=== PATIENT | female | born 1960 | race Caucasian/White ===

== ENCOUNTER 2018-02-12 14:54 | Inpatient (IN) | payer OTHER ==
[~2018-02-12] VITALS: Ht 157.5 cm; Wt 106.6 kg
[~2018-02-12 14:54] MED LIST: ASPI325 PO; ASPI81CH PO; CODACE30; CYCL10 PO; Cephalexin500 MG PO; Cleocin HCl300 MG PO; DIAZ5 PO; HYDACE10B PO; HYDACE5 PO; IBUP200; IBUP600 PO; IBUP800 PO; LISI5 PO; LOVA40; METF500C PO; METO25ER PO; Norco 5-325 Ta1 EACH PO; PENVK500 PO; POTA10T PO; PROM25 PO; RXHYDACE PO; Ultram50 MG PO
[2018-02-12 16:06] LABS: BASOPHILS ABSOLUTE AUTO 0.03 K/mm3 (0.00-0.23); BASOPHILS PERCENT AUTO 0 % (0-2); EOSINOPHILS PERCENT AUTO 0 % (0-6); Hematocrit 34.1 % (33.0-51.0); Hemoglobin 11.3 g/dL (11.5-16.0); IMMATURE GRAN ABSOLUTE AUTO 0.24 K/mm3 (0.00-0.10); IMMATURE GRAN PERCENT AUTO 1 % (0-1); LYMPHOCYTES ABSOLUTE AUTO 0.29 K/mm3 (0.84-5.20); LYMPHOCYTES PERCENT AUTO 1 % (21-46); MONOCYTES ABSOLUTE AUTO 0.51 K/mm3 (0.16-1.47); MONOCYTES PERCENT AUTO 2 % (4-13); Mean Corpuscular HGB 32.2 pg (26.0-34.0); Mean Corpuscular HGB Conc 33.1 g/dL (31.5-36.5); Mean Corpuscular Volume 97 fL (80-100); Mean Platelet Volume 9.4 fL (9.1-12.4); NEUTROPHILS ABSOLUTE AUTO 20.47 K/mm3 (1.96-9.15); NEUTROPHILS PERCENT AUTO 95 % (41-73); Platelet Count 303 K/mm3 (150-400); RDW Coefficient Variation 12.9 % (11.7-14.2); RDW Standard Deviation 46.4 fL (35.1-46.3); Red Blood Cell Count 3.51 M/mm3 (3.80-5.20); White Blood Cell Count 21.54 K/mm3 (4.00-11.30)
[2018-02-12 16:21] LABS: Alanine Aminotransfer (ALT/SGP 22 U/L (12-78); Albumin, Blood 3.2 g/dL (3.4-5.0); Albumin/Globulin Ratio 0.8 (0.8-1.8); Alk Phos 78 U/L (50-136); Anion Gap 11 mmol/L (6-16); Aspartate Aminotrans (AST/SGOT 17 U/L (12-37); Bilirubin, Total 0.6 mg/dL (0.1-1.0); Blood Urea Nitrogen 16 mg/dL (8-24); Bun/Creatinine Ratio 18.4 (12.0-20.0); CO2, Blood 24 mmol/L (21-32); Calcium, Blood 8.4 mg/dL (8.5-10.1); Chloride, Blood 104 mmol/L (98-108); Creatinine, Blood 0.87 mg/dL (0.40-1.00); Globulin, Blood 3.8 g/dL (2.2-4.0); Glomerular Filtration Rate >60 (60-); Glucose, Blood 169 mg/dL (70-99); Potassium, Blood 2.8 mmol/L (3.5-5.5); Sodium, Blood 139 mmol/L (136-145)
[2018-02-12] MEDS ORDERED: ASPI81CH PO (17:25)
[2018-02-12] MEDS ORDERED: Lovastatin20 MG PO (17:28)
[2018-02-12 17:46] LABS: Magnesium, Blood 1.5 mg/dL (1.6-2.4)
[2018-02-12] MEDS ORDERED: GUAI600T33 PO (22:23)
[2018-02-13 05:13] LABS: Hematocrit 33.1 % (33.0-51.0); Hemoglobin 10.9 g/dL (11.5-16.0); Mean Corpuscular HGB 32.7 pg (26.0-34.0); Mean Corpuscular HGB Conc 32.9 g/dL (31.5-36.5); Mean Corpuscular Volume 99 fL (80-100); Mean Platelet Volume 9.7 fL (9.1-12.4); Platelet Count 249 K/mm3 (150-400); RDW Coefficient Variation 13.2 % (11.7-14.2); RDW Standard Deviation 47.7 fL (35.1-46.3); Red Blood Cell Count 3.33 M/mm3 (3.80-5.20); White Blood Cell Count 15.02 K/mm3 (4.00-11.30)
[2018-02-13 05:39] LABS: Albumin, Blood 2.9 g/dL (3.4-5.0); Albumin/Globulin Ratio 0.7 (0.8-1.8); Bilirubin, Total 0.4 mg/dL (0.1-1.0); Calcium, Blood 8.7 mg/dL (8.5-10.1); Creatinine, Blood 1.09 mg/dL (0.40-1.00); Globulin, Blood 3.9 g/dL (2.2-4.0); Potassium, Blood 3.7 mmol/L (3.5-5.5); Total Protein, Blood 6.8 g/dL (6.4-8.2)
[2018-02-13 05:44] LABS: BAND PERCENT MAN 12 % (0-8); BASOPHILS PERCENT MAN 0 % (0-2); EOSINOPHILS PERCENT MAN 0 % (0-6); LYMPHOCYTES ABSOLUTE MAN 0.45 K/mm3 (0.84-5.20); LYMPHOCYTES PERCENT MAN 3 % (21-46); METAMYELOCYTE PERCENT MAN 2 % (0-0); MONOCYTES PERCENT MAN 2 % (4-13); NEUTROPHILS ABSOLUTE MAN 13.96 K/mm3 (1.96-9.15); SEG NEUTROPHILS PERCENT MAN 81 % (41-73); TOTAL CELLS COUNTED 100
[2018-02-14 05:17] LABS: Hematocrit 31.7 % (33.0-51.0); Hemoglobin 10.3 g/dL (11.5-16.0); Mean Corpuscular HGB 32.1 pg (26.0-34.0); Mean Corpuscular HGB Conc 32.5 g/dL (31.5-36.5); Mean Corpuscular Volume 99 fL (80-100); Mean Platelet Volume 9.7 fL (9.1-12.4); Platelet Count 201 K/mm3 (150-400); RDW Coefficient Variation 13.4 % (11.7-14.2); RDW Standard Deviation 48.5 fL (35.1-46.3); Red Blood Cell Count 3.21 M/mm3 (3.80-5.20); White Blood Cell Count 10.38 K/mm3 (4.00-11.30)
[2018-02-14 05:41] LABS: BAND PERCENT MAN 15 % (0-8); BASOPHILS PERCENT MAN 0 % (0-2); EOSINOPHILS PERCENT MAN 1 % (0-6); LYMPHOCYTES ABSOLUTE MAN 0.51 K/mm3 (0.84-5.20); LYMPHOCYTES PERCENT MAN 5 % (21-46); MONOCYTES PERCENT MAN 2 % (4-13); NEUTROPHILS ABSOLUTE MAN 9.54 K/mm3 (1.96-9.15); SEG NEUTROPHILS PERCENT MAN 77 % (41-73); TOTAL CELLS COUNTED 100
[2018-02-14 05:42] LABS: Albumin, Blood 2.5 g/dL (3.4-5.0); Albumin/Globulin Ratio 0.7 (0.8-1.8); Bilirubin, Total 0.3 mg/dL (0.1-1.0); Bun/Creatinine Ratio 24.3 (12.0-20.0); Calcium, Blood 8.5 mg/dL (8.5-10.1); Creatinine, Blood 1.15 mg/dL (0.40-1.00); Globulin, Blood 3.8 g/dL (2.2-4.0); Potassium, Blood 3.4 mmol/L (3.5-5.5); Total Protein, Blood 6.3 g/dL (6.4-8.2)
[2018-02-15 05:29] LABS: Bun/Creatinine Ratio 17.9 (12.0-20.0); Calcium, Blood 8.4 mg/dL (8.5-10.1); Creatinine, Blood 1.06 mg/dL (0.40-1.00); Potassium, Blood 3.1 mmol/L (3.5-5.5)
[2018-02-16 05:48] LABS: Anion Gap 10 mmol/L (6-16); Blood Urea Nitrogen 17 mg/dL (8-24); Bun/Creatinine Ratio 18.2 (12.0-20.0); CO2, Blood 26 mmol/L (21-32); Calcium, Blood 8.5 mg/dL (8.5-10.1); Chloride, Blood 106 mmol/L (98-108); Creatinine, Blood 0.93 mg/dL (0.40-1.00); Glomerular Filtration Rate >60 (60-); Glucose, Blood 114 mg/dL (70-99); Potassium, Blood 3.5 mmol/L (3.5-5.5); Sodium, Blood 142 mmol/L (136-145)
[2018-02-16 05:58] LABS: Percent Saturation 7.9 % (15.0-50.0)
[2018-02-17 04:16] LABS: BASOPHILS ABSOLUTE AUTO 0.05 K/mm3 (0.00-0.23); BASOPHILS PERCENT AUTO 1 % (0-2); EOSINOPHILS ABSOLUTE AUTO 0.33 K/mm3 (0.00-0.68); EOSINOPHILS PERCENT AUTO 3 % (0-6); Hematocrit 29.8 % (33.0-51.0); Hemoglobin 9.6 g/dL (11.5-16.0); IMMATURE GRAN PERCENT AUTO 5 % (0-1); LYMPHOCYTES ABSOLUTE AUTO 2.02 K/mm3 (0.84-5.20); LYMPHOCYTES PERCENT AUTO 19 % (21-46); MONOCYTES ABSOLUTE AUTO 1.12 K/mm3 (0.16-1.47); MONOCYTES PERCENT AUTO 10 % (4-13); Mean Corpuscular HGB 31.6 pg (26.0-34.0); Mean Corpuscular HGB Conc 32.2 g/dL (31.5-36.5); Mean Corpuscular Volume 98 fL (80-100); Mean Platelet Volume 9.5 fL (9.1-12.4); NEUTROPHILS PERCENT AUTO 63 % (41-73); Platelet Count 235 K/mm3 (150-400); RDW Standard Deviation 46.8 fL (35.1-46.3); Red Blood Cell Count 3.04 M/mm3 (3.80-5.20); White Blood Cell Count 10.92 K/mm3 (4.00-11.30)
[2018-02-17 04:38] LABS: Alanine Aminotransfer (ALT/SGP 15 U/L (12-78); Albumin, Blood 2.5 g/dL (3.4-5.0); Albumin/Globulin Ratio 0.6 (0.8-1.8); Alk Phos 78 U/L (50-136); Anion Gap 9 mmol/L (6-16); Aspartate Aminotrans (AST/SGOT 11 U/L (12-37); Bilirubin, Total 0.3 mg/dL (0.1-1.0); Blood Urea Nitrogen 21 mg/dL (8-24); Bun/Creatinine Ratio 20.8 (12.0-20.0); CO2, Blood 25 mmol/L (21-32); Calcium, Blood 8.2 mg/dL (8.5-10.1); Chloride, Blood 106 mmol/L (98-108); Creatinine, Blood 1.01 mg/dL (0.40-1.00); Globulin, Blood 4.1 g/dL (2.2-4.0); Glomerular Filtration Rate >60 (60-); Glucose, Blood 105 mg/dL (70-99); Potassium, Blood 3.3 mmol/L (3.5-5.5); Sodium, Blood 140 mmol/L (136-145); Total Protein, Blood 6.6 g/dL (6.4-8.2)
[2018-02-17] MEDS ORDERED: LISI20 PO (11:27)
[2018-02-17] MEDS ORDERED: METF500C PO (11:28)
[2018-02-17] MEDS ORDERED: METO25ER PO (11:28)
[2018-02-17] MEDS ORDERED: ACET325 PO (11:30)
[2018-02-17] MEDS ORDERED: FAMO20 PO (11:31)
[2018-02-17] MEDS ORDERED: Triamcinolone A15 G2 TOP (11:32)
[2018-02-17] MEDS ORDERED: Bactrim Ds Tab1 EACH PO (11:34)
[2018-02-18] MEDS ORDERED: NICO21TP TOP (08:09)
[2018-02-18] MEDS ORDERED: Norco 10-325 T1 EACH PO (08:10)
== END 2018-02-18 09:52 | disposition home or self-care (01) | DRG 603 ==
LOC: ER 14:54 → MEDS 14:55 → ENPENDDIS 02-18 08:00 → MEDS 02-18 09:52
PROVIDERS: Internal Medicine; Physician Assistant
DX: L03.115 Cellulitis of right lower limb (principal); E11.9 Type 2 diabetes mellitus without complications; I10 Essential (primary) hypertension; D64.9 Anemia, unspecified; F17.210 Nicotine dependence, cigarettes, uncomplicated; Z79.84 Long term (current) use of oral hypoglycemic drugs; E66.9 Obesity, unspecified; E78.5 Hyperlipidemia, unspecified; E87.6 Hypokalemia; G89.29 Other chronic pain
CPT/HCPCS: 36415; 80048; 80053; 80202; 82728; 82947; 83540; 83550; 83605; 83735; 85025; 85651; 87040; 87493; 93971; 96374; 96375; 99285; J0295; J0690; J1650; J1885; J2405; J3010; J3370; J7030; J7050; Q0163

== ENCOUNTER 2019-02-15 18:31 | Inpatient (IN) | payer OTHER ==
[~2019-02-15] VITALS: Ht 160 cm; Wt 118.1 kg
[~2019-02-15 18:31] MED LIST changes: +ACET325 PO; +Bactrim Ds Tab1 EACH PO; +FAMO20 PO; +GUAI600T33 PO; +LISI20 PO; +Lovastatin20 MG PO; +MONDOXYNE NL100 MG PO; +NICO21TP TOP; +Norco 10-325 T1 EACH PO; +Triamcinolone A15 G2 TOP
[2019-02-15 19:05] LABS: BASOPHILS ABSOLUTE AUTO 0.03 K/mm3 (0.00-0.23); BASOPHILS PERCENT AUTO 0 % (0-2); EOSINOPHILS ABSOLUTE AUTO 0.03 K/mm3 (0.00-0.68); EOSINOPHILS PERCENT AUTO 0 % (0-6); Hematocrit 37.4 % (33.0-51.0); Hemoglobin 12.3 g/dL (11.5-16.0); IMMATURE GRAN ABSOLUTE AUTO 0.07 K/mm3 (0.00-0.10); IMMATURE GRAN PERCENT AUTO 1 % (0-1); LYMPHOCYTES ABSOLUTE AUTO 0.35 K/mm3 (0.84-5.20); LYMPHOCYTES PERCENT AUTO 3 % (21-46); MONOCYTES ABSOLUTE AUTO 0.53 K/mm3 (0.16-1.47); MONOCYTES PERCENT AUTO 4 % (4-13); Mean Corpuscular HGB 31.6 pg (26.0-34.0); Mean Corpuscular HGB Conc 32.9 g/dL (31.5-36.5); Mean Corpuscular Volume 96 fL (80-100); Mean Platelet Volume 9.4 fL (9.1-12.4); NEUTROPHILS ABSOLUTE AUTO 12.67 K/mm3 (1.96-9.15); NEUTROPHILS PERCENT AUTO 93 % (41-73); Platelet Count 272 K/mm3 (150-400); RDW Coefficient Variation 13.5 % (11.7-14.2); RDW Standard Deviation 47.8 fL (35.1-46.3); Red Blood Cell Count 3.89 M/mm3 (3.80-5.20); White Blood Cell Count 13.68 K/mm3 (4.00-11.30)
[2019-02-15 19:28] LABS: Alanine Aminotransfer (ALT/SGP 27 U/L (12-78); Albumin, Blood 3.5 g/dL (3.4-5.0); Albumin/Globulin Ratio 0.9 (0.8-1.8); Alk Phos 124 U/L (50-136); Anion Gap 10 mmol/L (6-16); Aspartate Aminotrans (AST/SGOT 15 U/L (12-37); Bilirubin, Total 0.7 mg/dL (0.1-1.0); Blood Urea Nitrogen 20 mg/dL (8-24); CO2, Blood 21 mmol/L (21-32); Calcium, Blood 8.5 mg/dL (8.5-10.1); Chloride, Blood 107 mmol/L (98-108); Creatinine, Blood 0.87 mg/dL (0.40-1.00); Globulin, Blood 3.9 g/dL (2.2-4.0); Glomerular Filtration Rate >60 (60-); Glucose, Blood 224 mg/dL (70-99); Sodium, Blood 138 mmol/L (136-145); Total Protein, Blood 7.4 g/dL (6.4-8.2)
[2019-02-15] MEDS ORDERED: IBUP800 PO (22:57)
[2019-02-15] MEDS ORDERED: ACET500 PO (22:57)
[2019-02-15] MEDS ORDERED: GUAI600T33 PO (22:58)
--- NOTE | 2019-02-16 01:13 | NUR ---
PT VOMITTED ORAL KCL IMMEDIATELY AFTER ATTEMPTING TO SWALLOW PILLS AND THIS RN OBSERVED UNDISSOLVED PILLS IN EMESIS BAG. PT STATED SHE WASN'T NAUSEOUS BUT DRINKING MULTIPLE SIPS OF PEPSI W/PILLS MADE HER BELCH WHICH LEAD TO EMESIS IN HER OPINION. SHE WANTS TO TRY ORAL PILLS AGAIN SINCE SHE HASN'T TOLERATED KCL EVEN DILUTED IN LARGE AMTS OF NS. WILL ATTEMPT AGAIN SINCE MEDS WERE NOT RECIEVED.
--- NOTE | 2019-02-16 01:47 | NUR ---
VERIFIED ATTEMPTING TO GIVE 20MEQ PO KCL AGAIN. WILL TRY AT THIS TIME. VITAL SIGNS HAVE IMPROVED SINCE ARRIVAL TO FLOOR. WILL MONITOR CLOSELY.
--- NOTE | 2019-02-16 01:52 | NUR ---
VERIFIED ATTEMPTING TO GIVE 40MEQ PO KCL AGAIN. WILL TRY AT THIS TIME. CRITICAL LACTIC ACID ELEVATION (WAS 2.3 NOW 2.5) REVIEWED W/ AND HE DENIED NEEDING CONTINUOUS IVF AT THIS TIME. VITAL SIGNS HAVE IMPROVED SINCE ARRIVAL TO FLOOR. WILL MONITOR CLOSELY.
--- NOTE | 2019-02-16 04:43 | NUR ---
CRITICAL LACTIC ACID NOW 2.5, WAS 2.3. MADE AWARE AND PLANS TO REVIEW CHART, PLACING ORDERS INDICATED. PT WAS SWITCHED FROM IV POTASSIUM TO PO ROUTE D/T NOT TOLERATING IV INFUSION BUT NO NEW ORDERS PERTAINING TO LACTIC ACID AT THIS TIME.
--- NOTE | 2019-02-16 06:08 | NUR ---
T/F AND SUMMARY: PT T/F TO ROOM 355 AT 2235 VIA BED W/FAMILY AT BEDSIDE. CUSTOMER SUPPORT AGENT ASSISTED W/ADMISSION PAPERWORK AND PT ADMITTED SHE NEEDS ASSISTANCE W/ESTABLISHING A PCP. SHE ALSO HAS CHRONIC PAIN ISSUES AND TAKES 8 IBUPROFEN DAILY SO PAIN CLINIC CONSULTATION MAY BE RECOMMENDED, SS CX PLACED RESULT. PT IS A/OX4, CONTANKEROUS AND HAS MULTIPLE NONACUTE COMPLAINTS. SHE SEEMS TO BE NONCOMPLIANT W/DIABETES OUTPATIENT TX AND EDUCATION WAS PROVIDED. SHE ALSO DENIED TAKING HOME MEDS DESPITE HAVING PREVIOUS HX OF RX'D MEDS ON FILE. SHE IS HERE FOR RLE CELLULITIS W/PHOTOS TAKEN AND PERIMETER MARKED. LEG IS GROSSLY EDEMATOUS FROM KNEE TO ANKLE AND IS HOT, BRIGHT PINK AND PURPLE IN AREAS. SHE DENIES ANY SORES THE SOURCE OF INFECTION BUT DOES APPEAR TO HAVE SCATTERED SCABS OBSERVED. SHE COMPLAINTS OF PAIN TO RLE BUT REFUSED MORPHINE. NORCO X2 DOSES RECIEVED FOR 7/ "TOLERABLE" PAIN CONTROL. SHE HAD X1 EPISODE EMESIS THIS SHIFT AFTER ATTEMPTING TO SWALLOW ORAL POTASSIUM W/PEPSI. SHE DENIED NAUSEA BUT STATED PILLS "DIDN'T GO DOWN AND CAUSED GAG/BELCHING AND EMESIS". MD AUTHORIZED TO ORDER PO AGAIN WHICH SHE TOOK W/WATER SUCCESSFULLY. SHE DIDN'T TOLERATE PREVIOUSLY RX'D IV KCL D/T PAIN W/INFUSION. NEW IV WAS PLACED UPON PT'S REQUEST BUT PAIN WAS STILL TOO BAD SO KCL WAS SWITCHE TO 40 MEQ VIA PO ROUTE INSTEAD. SHE ALSO HAD BENEDRYL PO PRN FOR CONTROL OF RLE ITCHING. PT GOES OUTSIDE TO SMOKE AND DENIED SMOKING CESSATION TEACHING. SHE WAS ALSO INSTRUCTED TO KEEP LEG ELEVATED BUT INSISTS THAT IT FEELS BETTER WHEN SHE AMBULATES "TO GET FRESH AIR". SHE REQUESTED O2 UPON RETURN FROM SMOKING D/T C/O SOB BUT SPO2 WAS WNL. NO ACUTE CHANGES, VSS/AFEBRILE. WCTM AND REPORT TO DAY RN.
[2019-02-16 06:18] LABS: Hematocrit 33.9 % (33.0-51.0); Hemoglobin 11.1 g/dL (11.5-16.0); Mean Corpuscular HGB 31.5 pg (26.0-34.0); Mean Corpuscular HGB Conc 32.7 g/dL (31.5-36.5); Mean Corpuscular Volume 96 fL (80-100); Mean Platelet Volume 9.3 fL (9.1-12.4); Platelet Count 244 K/mm3 (150-400); RDW Coefficient Variation 13.8 % (11.7-14.2); RDW Standard Deviation 48.9 fL (35.1-46.3); Red Blood Cell Count 3.52 M/mm3 (3.80-5.20); White Blood Cell Count 16.56 K/mm3 (4.00-11.30)
[2019-02-16 06:35] LABS: BAND PERCENT MAN 32 % (0-8); BASOPHILS PERCENT MAN 0 % (0-2); EOSINOPHILS PERCENT MAN 0 % (0-6); LYMPHOCYTES ABSOLUTE MAN 0.16 K/mm3 (0.84-5.20); LYMPHOCYTES PERCENT MAN 1 % (21-46); METAMYELOCYTE ABSOLUTE MAN 0.16 K/mm3 (0.00-0.00); METAMYELOCYTE PERCENT MAN 1 % (0-0); MONOCYTES ABSOLUTE MAN 0.16 K/mm3 (0.16-1.47); MONOCYTES PERCENT MAN 1 % (4-13); MYELOCYTE ABSOLUTE MAN 0.33 K/mm3 (0.00-0.00); MYELOCYTE PERCENT MAN 2 % (0-0); NEUTROPHILS ABSOLUTE MAN 15.73 K/mm3 (1.96-9.15); SEG NEUTROPHILS PERCENT MAN 63 % (41-73); TOTAL CELLS COUNTED 100
[2019-02-16 06:38] LABS: Anion Gap 8 mmol/L (6-16); Blood Urea Nitrogen 22 mg/dL (8-24); CO2, Blood 22 mmol/L (21-32); Calcium, Blood 8.3 mg/dL (8.5-10.1); Chloride, Blood 109 mmol/L (98-108); Creatinine, Blood 0.96 mg/dL (0.40-1.00); Glomerular Filtration Rate >60 (60-); Glucose, Blood 164 mg/dL (70-99); Potassium, Blood 4.5 mmol/L (3.5-5.5); Sodium, Blood 139 mmol/L (136-145)
--- NOTE | 2019-02-16 18:25 | NUR ---
shift summary patient is noncompliant with her diet, uncomfortable and asks for her pain medications close to ever 3 hours, she currently gets 2 10/325s every 4 hours for pain. she is currently sleeping. she reports she is struggling to breathe, her saturation is fine and her breathing while talking is unlabored. she has asked for oxygen, then is unhappy when i did not offer this to her. i explained that giving her oxygen when she did not need it could be detrimental to her health due to the increase of co2 build up that happens in the system. the patient does not listen when given education and denies the need for education.
--- NOTE | 2019-02-17 04:51 | NUR ---
HOSPITALIST CALLED PT SPIKED A FEVER UP TO 103.1 CHECKED VITALS TWICE. HER BP 172/84, PULSE OF 106, RESP 22-24% CHEM BG 149, SATS 96%. BLOOD CULTURES DRAWN ON THE ARE NOT FINALIZED YET. LAST LACTIC ACID WAS ON THE AT 2.5. AFTER TWO ATTEMPTS TO HOSPITALIST GOT DR. VALLEJO. EXPLAINED SITUATION, INCLUDING CELLULITIS INCREASING UP LEG. HE ORDERED STAT LACTIC ACID AND TYLENOL Q 6 HOURS. INFORMED LAB WHO DRAW LABS IMMEDIATLY. GAVE TYLENOL SOON IT CAME IN. SHE IS VERY LETHARGIC BUT WAKES UP. WILL CONTINUE TO MONITOR.
[2019-02-17 04:52] LABS: Hematocrit 32.6 % (33.0-51.0); Hemoglobin 10.6 g/dL (11.5-16.0); Mean Corpuscular HGB 31.9 pg (26.0-34.0); Mean Corpuscular HGB Conc 32.5 g/dL (31.5-36.5); Mean Corpuscular Volume 98 fL (80-100); Mean Platelet Volume 9.5 fL (9.1-12.4); Platelet Count 224 K/mm3 (150-400); RDW Coefficient Variation 14.4 % (11.7-14.2); RDW Standard Deviation 51.7 fL (35.1-46.3); Red Blood Cell Count 3.32 M/mm3 (3.80-5.20); White Blood Cell Count 15.26 K/mm3 (4.00-11.30)
--- NOTE | 2019-02-17 06:36 | NUR ---
SHIFT SUMMARY: PT VERY TIRED NODDING OF AND ON, AOX3 WITH DAUGHTER IN ROOM IN ROOM WITH HER. SHE COMPLAINTED OF PAIN TO THE RIGHT LEG OFF AND ON AT BEGINNING OF SHIFT. GAVE HER 2 NORCO WITH HER PM MEDS. UNHOOKED HER FROM HER IV AND ALLOWED HER DAUGHTER TO TAKE HER OUTSIDE TO SMOKE, HER RIGHT LEG HAS MARKED CELLULITIS FROM THE KNEE DOWN. SHE HAS ONE OPEN BLISTER ON THE LATERAL PORTION OF HER LEG AND 1 INTAKE BLISTER WITH CLEAR FLUIDS TO THE ANTERIOR LEG, AND 1 INTAKE TO THE MEDIAL CALF ALSO CLEAR FLUID THIS. THE MEDICAL CALF GOT LARGER THROUGHOUT THE NIGHT, IT DID NOT OPEN, BUT THE REST OF HER LEG CONTINUED TO WEEK COPOUS ABOUT OF SEROUS FLUIDS. ONCE SHE GOT BACK SHE REPORTED INCREASE IN HER PAIN TO 10. ADMINISTERED 2 MG OF MORPHINE WHICH SHE SEEMED TO FINALLY GET SOME REST, SHE SLEPT UP TO AROUND 330 AM WHEN HER VITALS HAS A SIGNFICANT CHANGE, RESP WERE 22-24, BP 174/84, TEMP WAS 103.1, CHEM BG 149. CALLED DR. VALLEJO AND GOT ORDER FOR STATE LACTIC ACIT AND TYLENOL. RECHECK HER TEMP WAS 100.3. SHE BECAME TO LOOK BETTER OVERALL BUT WAS LETHARGIC WITH ABILITY TO AWAKEN BUT WILL FALL BACK TO SLEEP. LEG CONTNIUED TO WEEK AND REDNESS INCREASED TO ABOVE THE MARKED LINES. PAIN REMAINED CONTROLLED AFTER THE MORPHINE WAS GIVEN.LATER SHE DID ATTEMPT TO GET OUT OF BED AND WAS VERY UNSTEADY, AND LETHARGIC,SHE UNHOOKED HER IV WELL, SO WE PUT HER ON THE COMMODE AND FLUSHED HER IV AND PLACED NEW DRESSING AND CAP ON . CURRENTLY INFUSING WELL. NO OTHERE ISSUES TO NOTE, WILL REPORT TO DAY SHIFT.
--- NOTE | 2019-02-17 07:16 | NUR ---
patient has a vews score of 5 related to the patients temp, respiration rate, and blood pressure rise. the patient currently has a temperature and is sleeping. have called dr. angulo. I am aware that this is his first day with the patient and he does need time to look over the chart and make a decision on what to do with the patient at this time.
--- NOTE | 2019-02-17 18:05 | NUR ---
SHIFT SUMMARY PATIENT IS PLEASANT, ALERT AND ORIENTED INDEPENDENT. SPOKE WITH THE PATIENT AND ALERTED HER THAT I WOULD PREFER HER STAY IN THE ROOM FOR THE SAKE OF HER AND HER LEG SINCE IT IS WEEPING ALL OVER THE BED. NO ACUTE CONCERNS FROM THE PATIENT AT THIS TIME BESIDES HER LEG HURTING.
[2019-02-18 05:17] LABS: Hemoglobin 10.2 g/dL (11.5-16.0); Mean Corpuscular HGB 31.5 pg (26.0-34.0); Mean Corpuscular HGB Conc 31.9 g/dL (31.5-36.5); Mean Corpuscular Volume 99 fL (80-100); Mean Platelet Volume 11.5 fL (9.1-12.4); Platelet Count 215 K/mm3 (150-400); RDW Coefficient Variation 14.7 % (11.7-14.2); RDW Standard Deviation 52.8 fL (35.1-46.3); Red Blood Cell Count 3.24 M/mm3 (3.80-5.20)
[2019-02-18 05:43] LABS: BAND PERCENT MAN 27 % (0-8); BASOPHILS PERCENT MAN 0 % (0-2); EOSINOPHILS PERCENT MAN 0 % (0-6); LYMPHOCYTES ABSOLUTE MAN 0.84 K/mm3 (0.84-5.20); LYMPHOCYTES PERCENT MAN 5 % (21-46); MONOCYTES ABSOLUTE MAN 0.33 K/mm3 (0.16-1.47); MONOCYTES PERCENT MAN 2 % (4-13); NEUTROPHILS ABSOLUTE MAN 15.62 K/mm3 (1.96-9.15); SEG NEUTROPHILS PERCENT MAN 66 % (41-73); TOTAL CELLS COUNTED 100
[2019-02-18 05:45] LABS: Bun/Creatinine Ratio 27.7 (12.0-20.0); Calcium, Blood 8.5 mg/dL (8.5-10.1); Creatinine, Blood 1.01 mg/dL (0.40-1.00); Potassium, Blood 4.4 mmol/L (3.5-5.5)
--- NOTE | 2019-02-18 06:23 | NUR ---
SHIFT SUMMARY: MILTON WAS PLEASANT AND COOPERATIVE. ALERT MOST OF THE NIGHT WITH OCCATIONAL DOZING OFF. SHE HAS HAD A FAMILY FIREND WITH HER THROUGHOUT THE NIGHT AND KEPT HER IN A CHEERFUL MOOD. SHE WAS UP AND DOWN IN HER ROOM SHE IS USE TO BEING MOBILE AT HOME. HER RIGHT LEG HAS REMAINED SWOLLEN BUT LESS THEN PRIOR DAY. SHE HAS HAD WEEPING OF THE SKIN IN LARGE COPOUS AMOUNTS. THE BLISTER ON THE MEDIAL SIDE OF THE LEG HAS FINALLY POPPED LAYED SKIN DOWN OVER. SHE STILL HAS TWO MORE BLISTERS THAT ARE IN TACKED. FLUID IS SEROUS IN COLOR. PAIN HAS REMAINED ON AVERAGE 8 WITH NORCO BRINGS HER DOWN TO 4. VS HAVE REMAINED STABLE AND BLOOD SUGAR WAS GOOD, NO INSULIN WAS NEEDED. WILL REPORT TO DAY SHIFT RN.
--- NOTE | 2019-02-18 18:19 | NUR ---
SHIFT SUMMARY MEDICATED FOR PAIN IN RIGHT LEG X3 THIS SHIFT. PT'S RIGHT LEG SWOLLEN, RED, WITH BLISTERS THAT DRAIN. PT FREQUENTLY GOES OUTSIDE TO SMOKE. POWERGLIDE TO LEFT UPPER ARM PATENT AND INFUSES WITHOUT DIFFICULTY. NO ACUTE CHANGES THIS SHIFT. CALL LIGHT IN REACH. WILL CONTINUE TO MONITOR AND REPORT TO ONCOMING RN. CALL LIGHT IN REACH. WILL CONTINUE TO MONITOR AND REPORT TO ONCOMING RN.
[2019-02-18 21:27] LABS: Vancomycin, Trough 14.4 ug/mL (5.0-10.0)
--- NOTE | 2019-02-19 04:01 | NUR ---
SHIFT SUMMARY: PT IS ALERT AND ORIENTED. PT IS CALM AND COOPERATIVE WITH CARE. PT CALLS APPROPRIATELY. PT IS INDEPENDENT IN THE ROOM. FAMILY AND FRIENDS IN VISITING, ONE IN THE ROOM OVERNIGHT. PT REPORTS R. LEG PAIN, MEDICATING PER EMAR. PT OUTSIDE TO SMOKE ON SEVERAL OCCASIONS, ONCE GONE FOR NEARLY THREE HOURS, PT INSTRUCTED THAT SHE MAY NOT BE GONE FOR MORE THAN ONE HOUR OR SHE WOULD BE DISCHARGED, PT AGREED AND APOLOGIZED FOR HER EXTENDED ABSENCE. PT DENIES NAUSEA, VOMITING, AND SOB. NO ACUTE CHANGES OVERNIGHT. WILL REPORT TO DAY NURSE.
[2019-02-19 05:54] LABS: BASOPHILS ABSOLUTE AUTO 0.03 K/mm3 (0.00-0.23); BASOPHILS PERCENT AUTO 0 % (0-2); EOSINOPHILS ABSOLUTE AUTO 0.03 K/mm3 (0.00-0.68); EOSINOPHILS PERCENT AUTO 0 % (0-6); Hematocrit 31.6 % (33.0-51.0); IMMATURE GRAN ABSOLUTE AUTO 0.24 K/mm3 (0.00-0.10); IMMATURE GRAN PERCENT AUTO 2 % (0-1); LYMPHOCYTES ABSOLUTE AUTO 1.72 K/mm3 (0.84-5.20); LYMPHOCYTES PERCENT AUTO 11 % (21-46); MONOCYTES ABSOLUTE AUTO 1.46 K/mm3 (0.16-1.47); MONOCYTES PERCENT AUTO 9 % (4-13); Mean Corpuscular HGB 31.1 pg (26.0-34.0); Mean Corpuscular HGB Conc 31.6 g/dL (31.5-36.5); Mean Corpuscular Volume 98 fL (80-100); Mean Platelet Volume 9.6 fL (9.1-12.4); NEUTROPHILS ABSOLUTE AUTO 12.36 K/mm3 (1.96-9.15); NEUTROPHILS PERCENT AUTO 78 % (41-73); Platelet Count 256 K/mm3 (150-400); RDW Coefficient Variation 14.6 % (11.7-14.2); RDW Standard Deviation 53.7 fL (35.1-46.3); Red Blood Cell Count 3.22 M/mm3 (3.80-5.20); White Blood Cell Count 15.84 K/mm3 (4.00-11.30)
[2019-02-19 06:23] LABS: Anion Gap 4 mmol/L (6-16); Blood Urea Nitrogen 21 mg/dL (8-24); Bun/Creatinine Ratio 23.6 (12.0-20.0); CO2, Blood 27 mmol/L (21-32); Calcium, Blood 8.3 mg/dL (8.5-10.1); Chloride, Blood 108 mmol/L (98-108); Creatinine, Blood 0.89 mg/dL (0.40-1.00); Glomerular Filtration Rate >60 (60-); Glucose, Blood 149 mg/dL (70-99); Potassium, Blood 3.6 mmol/L (3.5-5.5); Sodium, Blood 139 mmol/L (136-145)
--- NOTE | 2019-02-19 18:58 | NUR ---
NO ACUTE CHANGES NOTED. PATIENT HAS CHRONIC PAIN IN HER RIGHT LOWER LEG DUE TO CELLULITIS. PAIN IS MANAGED WITH PRN MEDICATIONS. PATIENT GOES OUTSIDE AND STAYS OUTSIDE FOR EXTENDED PERIODS OF TIME EVEN THOUGH SHE HAS BEEN ASKED TO BE BACK WITHIN AN HOUR. NO CURRENT COMPLAINTS OF PAIN OR DISCOMFORT NOTED AT THIS TIME. WILL CONTINUE TO MONITOR FOR CHANGES.
--- NOTE | 2019-02-20 06:01 | NUR ---
SHIFT SUMMARY PT SLEPT FAIR, OFF AND ON. HAS BEEN OUTSIDE 4 TIMES DURING THE NIGHT. MEDICATED FOR PAIN X3. PT ALERT AND ORIENTED. PT HAS FRIEND STAYING WITH HER IN ROOM. RIGHT LEG BLISTERS WEEPY. NO ACUTE EVENTS NOTED DURING THE NIGHT, WILL CONTINUE TO MONITOR.
--- NOTE | 2019-02-20 08:00 | NUR ---
PT PLEASANT COOP A/O. TALKATIVE. FRIEND IN ROOM. H/R REG, NO MURMER NOTED. NO TELE. LUNGS CLEAR, RESP EASY, UNLABORED. ON R.A. BT X4 LAST BM TODAY. SOFT. VOIDS PER BATHROOM. BED IN LOW POSITION, CALL LITE IN REACH, CALLS APPROP. INDEPENDANT. WALKS OUTSIDE.
[2019-02-20 09:04] LABS: Vancomycin, Trough 17.6 ug/mL (5.0-10.0)
--- NOTE | 2019-02-20 18:16 | NUR ---
PT PLEASANT TODAY. OUT WHEN CAN BETWEEN ANTIBIOTICS. STATES SITS IN SUN. DOES NOT LIKE TO BE IN ROOM. WITH FRIEND. COMES BACK WHEN SAYS. ALWAYS ASKS BEFORE LEAVES. LEAVES PHONE # ON WALL SO WE CAN CLL IF NEED HER. LEG STILL OOZING. KEEPS WRAPPED WHEN LEAVES. BED IN LOW POSITION CALL LITE IN REACH, CALLS APPROP
--- NOTE | 2019-02-20 21:42 | NUR ---
PT WAS NOTED BY THIS NURSE AT BEGINNING OF SHIFT KEEPING RIGHT LOWER LEG IN DEPENDENT POSITION WHILE SITTING IN BEDSIDE CHAIR AND WHEELCHAIR, AND ALSO WEARING SAME CLOTHES SINCE ADMISSION TO INCLUDE LONG PANTS THAT TOUCH RIGHT CALF. THIS NURSE PROVIDED EXTRA LARGE HOSPITAL GOWN AND RECOMMENDED THAT PATIENT REMOVE ALL CLOTHES FROM HOME HARSH (WHICH SHE DID) AND WEAR HOSPITAL ATTIRE WHILE IN FACILITY. THIS NURSE ALSO RECOMMENDED THAT RLE BE ELEVATED 100% OF TIME ON 2-3 PILLOWS WHEN IN BEDSIDE CHAIR OR WHEELCHAIR WITH ACKNOWLEGEMENT NOTED. THIS NURSE SOILED RIGHT FOOT HOSPITAL SOCK THAT REVEALED DEEP CREASES IN SKIN AT ANKLE REGION WITH THIS NURSE RECOMMENDING PATIENT AVOID WEARING SOCK TO THIS FOOT. THIS NURSE ALSO RECOMMENDED PATIENT LIMIT HER TRIPS OUTSIDE TO NO MORE THAN TWO A DAY DUE CURRENT MEDICAL CONDITION WITH PATIENT IN AGREEMENT TO ALL THE ABOVE. PATIENTS LISSY TILLMAN IS SPENDING NIGHT AT BEDSIDE AND ASSISTS WITH ADLS. PATIENTS RIGHT LOWER LEG IS RED AND EXCORIATED WITH LARGE ANTERIOR NON OPENED BLISTER DRAINING CLEAR YELLOW FLUID.
[2019-02-21 06:23] LABS: Hematocrit 35.6 % (33.0-51.0); Mean Corpuscular HGB 31.3 pg (26.0-34.0); Mean Corpuscular HGB Conc 30.9 g/dL (31.5-36.5); Mean Platelet Volume 9.7 fL (9.1-12.4); Platelet Count 333 K/mm3 (150-400); RDW Coefficient Variation 14.6 % (11.7-14.2); RDW Standard Deviation 54.9 fL (35.1-46.3); Red Blood Cell Count 3.52 M/mm3 (3.80-5.20); White Blood Cell Count 12.87 K/mm3 (4.00-11.30)
[2019-02-21 06:35] LABS: Anion Gap 6 mmol/L (6-16); Blood Urea Nitrogen 19 mg/dL (8-24); Bun/Creatinine Ratio 24.7 (12.0-20.0); CO2, Blood 26 mmol/L (21-32); Calcium, Blood 8.1 mg/dL (8.5-10.1); Chloride, Blood 110 mmol/L (98-108); Creatinine, Blood 0.77 mg/dL (0.40-1.00); Glomerular Filtration Rate >60 (60-); Glucose, Blood 110 mg/dL (70-99); Potassium, Blood 3.2 mmol/L (3.5-5.5); Sodium, Blood 142 mmol/L (136-145)
[2019-02-21 06:36] LABS: Mean Corpuscular Volume 101 fL (80-100)
[2019-02-21 06:47] LABS: BAND PERCENT MAN 2 % (0-8); BASOPHILS PERCENT MAN 0 % (0-2); EOSINOPHILS ABSOLUTE MAN 0.12 K/mm3 (0.00-0.68); EOSINOPHILS PERCENT MAN 1 % (0-6); LYMPHOCYTES ABSOLUTE MAN 3.47 K/mm3 (0.84-5.20); LYMPHOCYTES PERCENT MAN 27 % (21-46); METAMYELOCYTE ABSOLUTE MAN 0.38 K/mm3 (0.00-0.00); METAMYELOCYTE PERCENT MAN 3 % (0-0); MONOCYTES ABSOLUTE MAN 0.51 K/mm3 (0.16-1.47); MONOCYTES PERCENT MAN 4 % (4-13); MYELOCYTE ABSOLUTE MAN 0.12 K/mm3 (0.00-0.00); MYELOCYTE PERCENT MAN 1 % (0-0); NEUTROPHILS ABSOLUTE MAN 8.23 K/mm3 (1.96-9.15); SEG NEUTROPHILS PERCENT MAN 62 % (41-73); TOTAL CELLS COUNTED 100
--- NOTE | 2019-02-21 07:15 | NUR ---
SHIFT SUMMARY: 59 Y/O OBESE FEMALE HAD RESTLESS SHIFT. THIS NURSE INSTRUCTED PATIENT ON NEED TO KEEP RLE ELEVATED AT ALL TIMES (PATIENT HAS NOT BEEN DOING THIS TASK). PTS LEFT LOWER LEG IS REDDENED, EXCORIATED WITH LARGE BLISTERS ON ANTERIOR/POSTERIOR ASPECT OF CALF DRAINING CLEAR YELLOW FLUID, LEFT FOOT HAS +3 PITTING EDEMA NOTED WITH NON OPENED BLISTERS AROUND ANKLE. PT C/O LEFT CALF PAIN RATED 9/10 WITH NORCO 5/325 X 2 GIVEN EVERY 4 HOURS WITH RELIEF FELT. PT IS ALERT AND ORIENTED X 4. PTS DAUGHTER PRIMO SPENT NIGHT AT SIDE AND ASSISTED WITH ALL ADLS. PTS LEFT UPPER ARM POWER GLIDE WOULD NOT DRAW BLOOD THUS LAB PERFORMED PERIPHERAL DRAW. PTS BED LOW POSITION, CALL LIGHT AT SIDE.
--- NOTE | 2019-02-21 18:03 | NUR ---
PT HAS BEEN OUT X2 SHE IS AOX4 AND COOPERATIVE OF CARE. PT HAS BEEN ELEVATING HER R LEG VERY WELL TODAY AND LIMITING HER TIME UP IN THE WHEELCHAIR. R LEG CONTINUES TO WEEP AND IS STILL HOT AND RED, BUT THE REDNESS HAS NOT GOTTEN WORSE TODAY. WILL CONTINUE TO MONITOR. PAIN TREATED PER EMAR.
[2019-02-21 20:48] LABS: Vancomycin, Trough 5.2 ug/mL (5.0-10.0)
--- NOTE | 2019-02-22 04:39 | NUR ---
SHIFT SUMMARY: 59 Y/O OB[place] FEMALE HAD RESTLESS NIGHT WITH PAIN RATED 9 TO RIGHT CALF WITH NORCO 5/325MG X 2 TABLETS GIVEN EVERY 4 HOURS WITH RELIEF FELT. PTS HAS BEEN KEEPING RLE ELEVATED ON 2-3 PILLOWS THIS SHIFT AND LIMITED EXCERSIONS OUTSIDE TO ONE TIME IN WHEELCHAIR. PTS RIGHT CALF ANTERIOR ASPECT HAS DRIED UP, DISTAL BLISTERS AT ANKLE REGION CONTINUE TO HAVE CLEAR YELLOW DRAINAGE NOTED. PT NEEDS LOTS OF REINFORCEMENT AND ENCOURAGEMENT TO KEEP LEG ELEVATED SHE TENDS TO BE NON COMPLIANT AT TIMES AND VOICED, "I'M GOING BACK TO WORK SOON AND CANT KEEP OFF MY LEG ALL THE TIME". PTS DAUGHTER PRIMO SPENT NIGHT AT SIDE AND ASSISTED WITH ADLS. PT ALERT AND ORIENTED X 4. PTS BED LOW POSITION, CALL LIGHT AT SIDE.
[2019-02-22 05:50] LABS: Hematocrit 36.4 % (33.0-51.0); Hemoglobin 11.2 g/dL (11.5-16.0); Mean Corpuscular HGB 30.4 pg (26.0-34.0); Mean Corpuscular HGB Conc 30.8 g/dL (31.5-36.5); Mean Corpuscular Volume 99 fL (80-100); Mean Platelet Volume 9.6 fL (9.1-12.4); Platelet Count 386 K/mm3 (150-400); RDW Coefficient Variation 14.4 % (11.7-14.2); RDW Standard Deviation 51.9 fL (35.1-46.3); Red Blood Cell Count 3.69 M/mm3 (3.80-5.20); White Blood Cell Count 17.47 K/mm3 (4.00-11.30)
[2019-02-22 06:14] LABS: Anion Gap 6 mmol/L (6-16); Blood Urea Nitrogen 24 mg/dL (8-24); Bun/Creatinine Ratio 31.6 (12.0-20.0); CO2, Blood 25 mmol/L (21-32); Chloride, Blood 108 mmol/L (98-108); Creatinine, Blood 0.76 mg/dL (0.40-1.00); Glomerular Filtration Rate >60 (60-); Glucose, Blood 124 mg/dL (70-99); Potassium, Blood 3.6 mmol/L (3.5-5.5); Sodium, Blood 139 mmol/L (136-145)
[2019-02-22 06:16] LABS: BAND PERCENT MAN 1 % (0-8); BASOPHILS PERCENT MAN 0 % (0-2); EOSINOPHILS ABSOLUTE MAN 0.17 K/mm3 (0.00-0.68); EOSINOPHILS PERCENT MAN 1 % (0-6); LYMPHOCYTES ABSOLUTE MAN 4.19 K/mm3 (0.84-5.20); LYMPHOCYTES PERCENT MAN 24 % (21-46); MONOCYTES ABSOLUTE MAN 0.69 K/mm3 (0.16-1.47); MONOCYTES PERCENT MAN 4 % (4-13); SEG NEUTROPHILS PERCENT MAN 70 % (41-73); TOTAL CELLS COUNTED 100
--- NOTE | 2019-02-22 14:38 | NUR ---
PT TRANSFERED TO [facility] WITH [facility] TO TRANSPORT. PT AOX4 AND COOPERAITIVE OF CARE. PT WAS ABLE TO TAKE A WHEELCHAIR. POWERGLIDE LEFT IN PLACE TO HAVE IV ANTIBOTICS ADMINISTERED AT [facility]AB [facility]. PT HAS ALL BELONGINGS AND PACKET WAS SENT WITH [facility]. REPORT CALLED OVER PRIOR TO TRANSPORT.
[2019-02-22] MEDS ORDERED: NAPR500 PO (15:07)
[2019-02-22] MEDS ORDERED: CEFAZOLIN2 GM/50 M2 IV (15:08)
[2019-02-22] MEDS ORDERED: DOXY100 PO (15:09)
[2019-02-22] MEDS ORDERED: Vsl#3 Capsule1 EACH PO (15:10)
[2019-02-22] MEDS ORDERED: Norco 10-325 T1 EACH PO (15:10)
[2019-02-22] MEDS ORDERED: LISI20 PO (15:11)
== END 2019-02-22 14:35 | DRG 872 ==
LOC: ER 18:31 → MEDS 21:15
PROVIDERS: Emergency Medicine; Internal Medicine; ADMIT Internal Medicine
DX: A41.9 Sepsis, unspecified organism (principal); L03.115 Cellulitis of right lower limb; R65.20 Severe sepsis without septic shock; E11.9 Type 2 diabetes mellitus without complications; I10 Essential (primary) hypertension; E87.6 Hypokalemia; I87.2 Venous insufficiency (chronic) (peripheral); A46 Erysipelas; F17.200 Nicotine dependence, unspecified, uncomplicated; E78.5 Hyperlipidemia, unspecified; Z79.84 Long term (current) use of oral hypoglycemic drugs; Z79.899 Other long term (current) drug therapy
CPT/HCPCS: 36415; 73701; 80048; 80053; 80202; 82947; 83036; 83605; 85025; 85027; 87040; 93971; 96365; 96366; 96375; 99284-25; A9270; C1751; J0690; J1650; J1815; J2270; J2405; J3010; J3370; J3480; J7030; J7050; J7120; J7512; Q0163; Q9967

== ENCOUNTER 2019-03-18 18:08 | Emergency (ER) | payer OTHER ==
[~2019-03-18] VITALS: Ht 160 cm; Wt 117.9 kg
[~2019-03-18 18:08] MED LIST changes: +ACET500 PO; +CEFAZOLIN2 GM/50 M2 IV; +DOXY100 PO; +NAPR500 PO; +Vsl#3 Capsule1 EACH PO
[2019-03-18 19:01] LABS: BASOPHILS ABSOLUTE AUTO 0.07 K/mm3 (0.00-0.23); BASOPHILS PERCENT AUTO 1 % (0-2); EOSINOPHILS ABSOLUTE AUTO 0.21 K/mm3 (0.00-0.68); EOSINOPHILS PERCENT AUTO 2 % (0-6); Hematocrit 35.5 % (33.0-51.0); Hemoglobin 11.5 g/dL (11.5-16.0); IMMATURE GRAN ABSOLUTE AUTO 0.06 K/mm3 (0.00-0.10); IMMATURE GRAN PERCENT AUTO 1 % (0-1); LYMPHOCYTES ABSOLUTE AUTO 1.75 K/mm3 (0.84-5.20); LYMPHOCYTES PERCENT AUTO 14 % (21-46); MONOCYTES ABSOLUTE AUTO 0.69 K/mm3 (0.16-1.47); MONOCYTES PERCENT AUTO 6 % (4-13); Mean Corpuscular HGB 31.6 pg (26.0-34.0); Mean Corpuscular HGB Conc 32.4 g/dL (31.5-36.5); Mean Corpuscular Volume 98 fL (80-100); NEUTROPHILS ABSOLUTE AUTO 9.56 K/mm3 (1.96-9.15); NEUTROPHILS PERCENT AUTO 77 % (41-73); Platelet Count 464 K/mm3 (150-400); RDW Coefficient Variation 13.6 % (11.7-14.2); Red Blood Cell Count 3.64 M/mm3 (3.80-5.20); White Blood Cell Count 12.34 K/mm3 (4.00-11.30)
[2019-03-18 19:17] LABS: International Normalized Ratio 0.95; Prothrombin Time Results 10.1 Sec (9.7-11.5)
[2019-03-18 19:19] LABS: Alanine Aminotransfer (ALT/SGP 14 U/L (12-78); Albumin, Blood 3.4 g/dL (3.4-5.0); Albumin/Globulin Ratio 0.7 (0.8-1.8); Alk Phos 112 U/L (50-136); Anion Gap 8 mmol/L (6-16); Aspartate Aminotrans (AST/SGOT 8 U/L (12-37); Bilirubin, Total 0.2 mg/dL (0.1-1.0); Blood Urea Nitrogen 12 mg/dL (8-24); Bun/Creatinine Ratio 15.2 (12.0-20.0); CO2, Blood 22 mmol/L (21-32); Calcium, Blood 8.7 mg/dL (8.5-10.1); Chloride, Blood 108 mmol/L (98-108); Creatinine, Blood 0.79 mg/dL (0.40-1.00); Globulin, Blood 4.7 g/dL (2.2-4.0); Glomerular Filtration Rate >60 (60-); Glucose, Blood 185 mg/dL (70-99); Potassium, Blood 3.3 mmol/L (3.5-5.5); Sodium, Blood 138 mmol/L (136-145); Total Protein, Blood 8.1 g/dL (6.4-8.2)
[2019-03-18] MEDS ORDERED: Doxycycline Hy100 MG PO (22:48)
[2019-03-18] MEDS ORDERED: Roxicodone5 MG PO (22:48)
== END 2019-03-18 23:20 | disposition home or self-care (01) ==
LOC: ER 18:08
PROVIDERS: Physician Assistant
DX: L03.115 Cellulitis of right lower limb (principal); G89.29 Other chronic pain; R73.9 Hyperglycemia, unspecified; I10 Essential (primary) hypertension; F17.210 Nicotine dependence, cigarettes, uncomplicated; Z79.899 Other long term (current) drug therapy
CPT/HCPCS: 36415; 80053; 83605; 85025; 85610; 85730; 87040; 93005; 93010; 96374; 99284-25; A9270; J1170

== ENCOUNTER → 2020-05-13 | Outpatient (CLI) | payer OTHER ==
[~2020-05-13] MED LIST changes: +Doxycycline Hy100 MG PO; +Roxicodone5 MG PO; +Veetids 500500 MG PO
[2020-05-13 15:55] LABS: Campylobacter Sp Not Detected (NOT DETECT)
[2020-05-13 15:56] LABS: Adenovirus F 40/41 Not Detected (NOT DETECT); Astrovirus Not Detected (NOT DETECT); Cryptosporidium Not Detected (NOT DETECT); Cyclospora Cayetanensis Not Detected (NOT DETECT); E. Coli O157 Not Detected (NOT DETECT); Entamoeba Histolytica Not Detected (NOT DETECT); Enteroaggregative E. coli-EAEC Not Detected (NOT DETECT); Enteropathogenic E. coli-EPEC Not Detected (NOT DETECT); Enterotoxigenic E. coli-ETEC Not Detected (NOT DETECT); Giardia Lamblia Not Detected (NOT DETECT); Norovirus GI/GII Not Detected (NOT DETECT); Plesiomonas Shigelloides Not Detected (NOT DETECT); Rotavirus A Not Detected (NOT DETECT); Salmonella Sp Not Detected (NOT DETECT); Sapovirus Not Detected (NOT DETECT); Shiga Toxin-prod E. coli-STEC Not Detected (NOT DETECT); Shigella/Enteroin E. coli-EIEC Not Detected (NOT DETECT); Vibrio Cholerae Not Detected (NOT DETECT); Vibrio Sp Not Detected (NOT DETECT); Yersinia Enterocolitica Not Detected (NOT DETECT)
== END | disposition home or self-care (01) ==
LOC: LAB SHORT 12:37 → LAB 12:37
PROVIDERS: Internal Medicine
DX: I10 Essential (primary) hypertension (principal); R19.7 Diarrhea, unspecified
CPT/HCPCS: 0097U

== ENCOUNTER → 2022-09-27 | Outpatient (CLI) | payer OTHER ==
[2022-09-27 19:34] LABS: BASOPHILS PERCENT AUTO 1 % (0-2); EOSINOPHILS ABSOLUTE AUTO 0.41 K/mm3 (0.00-0.68); EOSINOPHILS PERCENT AUTO 3 % (0-6); Hematocrit 35.4 % (33.0-51.0); Hemoglobin 11.4 g/dL (11.5-16.0); IMMATURE GRAN ABSOLUTE AUTO 0.03 K/mm3 (0.00-0.10); IMMATURE GRAN PERCENT AUTO 0 % (0-1); LYMPHOCYTES ABSOLUTE AUTO 4.32 K/mm3 (0.84-5.20); LYMPHOCYTES PERCENT AUTO 35 % (21-46); MONOCYTES ABSOLUTE AUTO 0.96 K/mm3 (0.16-1.47); MONOCYTES PERCENT AUTO 8 % (4-13); Mean Corpuscular HGB 32.4 pg (26.0-34.0); Mean Corpuscular HGB Conc 32.2 g/dL (31.5-36.5); Mean Corpuscular Volume 101 fL (80-100); NEUTROPHILS ABSOLUTE AUTO 6.66 K/mm3 (1.96-9.15); NEUTROPHILS PERCENT AUTO 53 % (41-73); Platelet Count 459 K/mm3 (150-400); RDW Coefficient Variation 12.8 % (11.7-14.2); RDW Standard Deviation 47.4 fL (35.1-46.3); Red Blood Cell Count 3.52 M/mm3 (3.80-5.20); White Blood Cell Count 12.48 K/mm3 (4.00-11.30)
[2022-09-27 19:46] LABS: Albumin, Blood 3.7 g/dL (3.4-5.0); Albumin/Globulin Ratio 1.1 (0.8-1.8); Bilirubin, Total 0.2 mg/dL (0.1-1.0); Bun/Creatinine Ratio 21.7 (12.0-20.0); Calcium, Blood 8.7 mg/dL (8.5-10.1); Creatinine, Blood 2.03 mg/dL (0.40-1.00); Globulin, Blood 3.5 g/dL (2.2-4.0); Potassium, Blood 4.5 mmol/L (3.5-5.5); Total Protein, Blood 7.2 g/dL (6.4-8.2)
== END | disposition home or self-care (01) ==
LOC: LAB SHORT 16:30
PROVIDERS: Family Medicine
DX: E11.9 Type 2 diabetes mellitus without complications (principal); I10 Essential (primary) hypertension; Z79.899 Other long term (current) drug therapy
CPT/HCPCS: 80053; 85025

== ENCOUNTER → 2022-11-28 | Outpatient (CLI) | payer OTHER ==
[2022-11-28 19:00] LABS: Creatinine Urine 46.4 mg/dL (27.00-270.00); Microalbumin, Urine Quant. 7.08 mg/L (0.000-20.000); Protein, Urine Quantitative 15.9 mg/dL (0.0-11.9)
== END | disposition home or self-care (01) ==
LOC: LAB SHORT 15:18
PROVIDERS: Internal Medicine Nephrology
DX: N18.2 Chronic kidney disease, stage 2 (mild) (principal); D63.1 Anemia in chronic kidney disease; D50.9 Iron deficiency anemia, unspecified; D52.8 Other folate deficiency anemias; N25.81 Secondary hyperparathyroidism of renal origin; R94.5 Abnormal results of liver function studies; R76.9 Abnormal immunological finding in serum, unspecified
CPT/HCPCS: 81050; 82043; 82570; 84156

== ENCOUNTER 2024-03-19 09:00 | Inpatient (IN) | payer OTHER ==
[~2024-03-19] VITALS: Ht 157.5 cm; Wt 108.7 kg
[2024-03-19] MEDS ORDERED: Ondansetron HCl 2 MG / ML 2ML Vial IV ONE (09:25)
[2024-03-19] MEDS ORDERED: Acetaminophen 500 MG Tab PO ONE (09:25)
[2024-03-19 10:20] LABS: BASOPHILS ABSOLUTE AUTO 0.05 K/mm3 (0.00-0.23); BASOPHILS PERCENT AUTO 0 % (0-2); Hematocrit 28.9 % (33.0-51.0); Hemoglobin 9.7 g/dL (11.5-16.0); LYMPHOCYTES ABSOLUTE AUTO 0.43 K/mm3 (0.84-5.20); LYMPHOCYTES PERCENT AUTO 2 % (21-46); MONOCYTES ABSOLUTE AUTO 0.66 K/mm3 (0.16-1.47); MONOCYTES PERCENT AUTO 3 % (4-13); Mean Corpuscular HGB 33.3 pg (26.0-34.0); Mean Corpuscular HGB Conc 33.6 g/dL (31.5-36.5); Mean Corpuscular Volume 99 fL (80-100); Mean Platelet Volume 9.4 fL (9.1-12.4); Platelet Count 278 K/mm3 (150-400); RDW Coefficient Variation 13.4 % (11.7-14.2); RDW Standard Deviation 47.9 fL (35.1-46.3); Red Blood Cell Count 2.91 M/mm3 (3.80-5.20); White Blood Cell Count 26.55 K/mm3 (4.00-11.30)
[2024-03-19 10:22] LABS: EOSINOPHILS ABSOLUTE AUTO 0.01 K/mm3 (0.00-0.68); EOSINOPHILS PERCENT AUTO 0 % (0-6); IMMATURE GRAN PERCENT AUTO 1 % (0-1); NEUTROPHILS PERCENT AUTO 95 % (41-73)
[2024-03-19 10:36] LABS: Albumin, Blood 3.1 g/dL (3.4-5.0); Albumin/Globulin Ratio 0.8 (0.8-1.8); Bilirubin, Total 0.5 mg/dL (0.1-1.0); Bun/Creatinine Ratio 16.3 (12.0-20.0); Calcium, Blood 8.6 mg/dL (8.5-10.1); Creatinine, Blood 1.23 mg/dL (0.40-1.00); Potassium, Blood 3.8 mmol/L (3.5-5.5); Total Protein, Blood 7.1 g/dL (6.4-8.2)
[2024-03-19 10:37] LABS: BAND PERCENT MAN 5 % (0-8); BASOPHILS PERCENT MAN 0 % (0-2); EOSINOPHILS PERCENT MAN 0 % (0-6); LYMPHOCYTES ABSOLUTE MAN 0.26 K/mm3 (0.84-5.20); LYMPHOCYTES PERCENT MAN 1 % (21-46); MONOCYTES ABSOLUTE MAN 1.06 K/mm3 (0.16-1.47); MONOCYTES PERCENT MAN 4 % (4-13); NEUTROPHILS ABSOLUTE MAN 25.22 K/mm3 (1.96-9.15); SEG NEUTROPHILS PERCENT MAN 90 % (41-73); TOTAL CELLS COUNTED 100
[2024-03-19] MEDS ORDERED: NS 1,000 ML IV SCH ×3 (10:45→15:00)
[2024-03-19] MEDS ORDERED: Vancomycin HCL 2,000 MG in NS 500 ML IV ONE (12:00)
[2024-03-19] MEDS ORDERED: Acetaminophen 325 MG TABLET PO PRN (14:15)
[2024-03-19] MEDS ORDERED: ATOR40TA PO (15:37)
[2024-03-19] MEDS ORDERED: METF500 PO (15:37)
[2024-03-19] MEDS ORDERED: LISI20 PO (15:37)
[2024-03-19] MEDS ORDERED: OMEP20ER PO (15:38)
[2024-03-19] MEDS ORDERED: PRENATAL TABLE1 EAC2 PO (15:38)
[2024-03-19] MEDS ORDERED: Norco 10-325 T1 EACH PO (15:38)
[2024-03-19] MEDS ORDERED: CeFAZolin Sodium 1,000 MG in NS 50 ML IV SCH (16:00)
[2024-03-19 16:01] VITALS: BP 94/50
--- NOTE | 2024-03-19 16:31 | NUR ---
ADMIT SUMMARY: PT ADMITTED TO ROOM 334. PT ARRIVED VIA WHEELCHAIR AND WAS ABLE TO IND TX TO BED. PT IS A/O X 4, PLEASANT AND COOPERATIVE. PT REQUESTED TO GO OUTSIDE TO SMOKE. PT EDUCATED ON HOSPITAL NON-SMOKING POLICY. PT REPORTED SHE HAD CIGARETTES AND A TELETYPE TECHNICIAN. PT WAS OKAY WITH US LOCKING UP IN OUTSIDE ROOM DRAWER. PT OFFERED NICOTINE PATCH/GUM AND SHE DECLINED OFFER. PT STARTED ON IV FLUIDS AND ABX. PT ORIENTED TO ROOM AND CALL LIGHT. PT REQUESTED HER NORCO WHICH WAS NOT ON NOV. VERIFIED ALL HOME MEDICATIONS WITH PT AND CALL PLACED TO DR. BAILEY WITH REQUEST TO START PAIN MEDICATIONS AND HOME MEDICATIONS. PT GIVEN PEPSI AND ICE WATER PER HER REQUEST. EDUCATED PT ON PRESCRIBED DIET AND HOW TO ORDER FOOD. PT V/U. PHOTOS TAKEN OF CELLULITIS TO RLE. NO OTHER SKIN SORES,RASHES, WOUNDS FOUND. PT ORIENTED TO FALL PRECAUTIONS. SHE IS SBA.
[2024-03-19] MEDS ORDERED: HYDROcodone 5-APAP 325 TAB PO PRN ×4 (16:35→22:38)
--- NOTE | 2024-03-19 18:00 | NUR ---
Pt. is awake in bed and welcomes my visit. Pt. is pleasant. Facilitate a life review. Pt. displays evidence of mild frustration with her diagnosis. Listen with empathy and consider matters of sary and belief. Pt. verbalizes of her long-term commitment to [facility] in [place] ([facility]). prayed with Pt. Pt. verbalized gratitude for the spiritual care visit and welcomed this relay assembler to return.
[2024-03-19 19:27] VITALS: BP 113/97
[2024-03-19] MEDS ORDERED: Lactobacil 2-S.Thermo-Bifido 1 1 Cap PO SCH (21:00)
[2024-03-20 03:08] VITALS: BP 104/55
[2024-03-20 05:47] LABS: BASOPHILS ABSOLUTE AUTO 0.03 K/mm3 (0.00-0.23); BASOPHILS PERCENT AUTO 0 % (0-2); EOSINOPHILS ABSOLUTE AUTO 0.02 K/mm3 (0.00-0.68); EOSINOPHILS PERCENT AUTO 0 % (0-6); Hematocrit 24.6 % (33.0-51.0); Hemoglobin 7.8 g/dL (11.5-16.0); IMMATURE GRAN ABSOLUTE AUTO 0.24 K/mm3 (0.00-0.10); IMMATURE GRAN PERCENT AUTO 1 % (0-1); LYMPHOCYTES ABSOLUTE AUTO 0.83 K/mm3 (0.84-5.20); LYMPHOCYTES PERCENT AUTO 5 % (21-46); MONOCYTES ABSOLUTE AUTO 0.87 K/mm3 (0.16-1.47); MONOCYTES PERCENT AUTO 5 % (4-13); Mean Corpuscular HGB 32.8 pg (26.0-34.0); Mean Corpuscular HGB Conc 31.7 g/dL (31.5-36.5); Mean Corpuscular Volume 103 fL (80-100); Mean Platelet Volume 9.6 fL (9.1-12.4); NEUTROPHILS ABSOLUTE AUTO 15.27 K/mm3 (1.96-9.15); NEUTROPHILS PERCENT AUTO 89 % (41-73); Platelet Count 218 K/mm3 (150-400); RDW Coefficient Variation 14.2 % (11.7-14.2); RDW Standard Deviation 53.2 fL (35.1-46.3); Red Blood Cell Count 2.38 M/mm3 (3.80-5.20); White Blood Cell Count 17.26 K/mm3 (4.00-11.30)
[2024-03-20 06:08] LABS: Albumin, Blood 2.5 g/dL (3.4-5.0); Albumin/Globulin Ratio 0.8 (0.8-1.8); Bilirubin, Total 0.4 mg/dL (0.1-1.0); Bun/Creatinine Ratio 16.4 (12.0-20.0); Calcium, Blood 7.4 mg/dL (8.5-10.1); Creatinine, Blood 1.4 mg/dL (0.40-1.00); Globulin, Blood 3.2 g/dL (2.2-4.0); Potassium, Blood 3.7 mmol/L (3.5-5.5); Total Protein, Blood 5.7 g/dL (6.4-8.2)
--- NOTE | 2024-03-20 06:34 | NUR ---
SHIFT SUMMARY: A&OX4, RA ENDORSES SOB ESPECIALLY W/ EXERTION. TELEMETRY IN PLACE DENIES CP/PRESSURE. RLE CELLULITIS MARKED, HOT AND RED, L EDEMATOUS. SBA W/ CANE TO BRP. LAST BM 03/19. REGULAR DIET W/ PILLS WHOLE. R HAND PIV RUNNING NS @ 150. PT TO D/C 03/20 HERE FOR OBS. ABX - VANC & ROCEPHIN. PT RECEIVED [employer] FOR PAIN, MEDICATIO NALTERED TO REFLECT BROADCAST DIRECTOR OPERATIONS MED LIST.
[2024-03-20 07:50] VITALS: BP 82/43
[2024-03-20] MEDS ORDERED: Lactated Ringer's 1,000 ML IV SCH (08:00)
[2024-03-20] MEDS ORDERED: Atorvastatin 40 MG Tab PO SCH (09:00)
[2024-03-20] MEDS ORDERED: Enoxaparin 40 MG/0.4 ML SYR SC SCH (09:00)
[2024-03-20 09:38] VITALS: BP 102/40
[2024-03-20] MEDS ORDERED: Vancomycin HCL 1,500 MG in NS 250 ML IV SCH (12:00)
--- NOTE | 2024-03-20 12:21 | NUR ---
THIS RN TO BEDSIDE FOR MEDICATION ADMINISTRATION. PATIENT TEARFUL, CRYING THAT SOMEONE WAS GOING TO KILL HER. I ASKED WHO AND SHE STATED IT WAS SOMEONE SHE HASN'T SPOKEN TO SINCE BEFORE COMING TO THE HOSPITAL AND THEY "THREATED TO MAKE MY LIFE A LIVING HELL. THEY'RE GOING TO KILL ME, DO YOU UNDERSTAND?" SHE ALSO REITERATED THAT SHE HADN'T SPOKEN TO THE PERSON SINCE COMING INTO THE HOSPITAL, STATING THEY'D NEVER BEEN IN THE SAME ADDRESS AT THE SAME TIME AND THIS PERSON CONTINUED TO THREATEN TO MAKE HER LIFE A LIVING HELL. SHE THEN STATED SOMEONE HAD TAKEN HER SOUP AND IT TRIGGERED HER YESTERDAY AFTER SHE HAD WORKED REALLY HARD TO GET THE SOUP. CASE MANAGEMENT CAME TO THE ROOM AND PATIENT ASKED THE LEGAL INTERNSHIP TO SIT DOWN SO THE PATIENT DID NOT FEEL SO INTIMIDATED. VERY TEARFUL, STATING SHE IS PHYSICALLY EXHAUSTED AND HAVING DIFFICULTY FINDING PLACEMENT FOR HERSELF ONCE SHE LEAVES THE HOSPITAL.
[2024-03-20 13:42] LABS: Hematocrit 24.3 % (33.0-51.0); Hemoglobin 7.7 g/dL (11.5-16.0); IMMATURE RETIC FRACTION 12.9 % (2.3-16.0); RETIC HGB EQUIVALENT 32.6 pg (28.20-36.60); RETICULOCYTE ABSOLUTE 0.0559 M/mm3 (0.0200-0.1100); RETICULOCYTE COUNT PERCENT 2.4 % (0.50-2.50)
[2024-03-20] MEDS ORDERED: METF500C PO (14:12)
[2024-03-20] MEDS ORDERED: ONDA4ODT PO (14:17)
[2024-03-20 14:40] LABS: Percent Saturation 6.8 % (15.0-50.0)
[2024-03-20 14:43] VITALS: BP 89/59
--- NOTE | 2024-03-20 17:33 | NUR ---
Pt. is awake in bed and welcomes my visit. Pt. is unsettled by the lack of a clear diagnosis for her condition. Listened with empathy and a calming presence. Seek to normalize the Pt. experience. Pt. displayed evidence of understanding and agreement. Pt. spoke about how she normally only eats one meal a day at home. Prayed for Pt. Pt. requested a bible. One was delivered, and Pt. verbalized gratitude for the spiritual care visits.
[2024-03-20 19:02] VITALS: BP 104/72
--- NOTE | 2024-03-20 20:10 | NUR ---
DAY SHIFT SUMMARY: A&Ox4. PLEASANT AND COOPERATIVE WITH CARE. CALLS APPRORPIATELY AND IS ABLE TO ADVOCATE NEEDS EFFECTIVELY. LR TODAY @ 150. TOOK SHOWER. C/O PAIN; MEDICATED x2 PRN NORCO 2 TABS D/T SIGNIFICANT LEG PAIN. FAMILY IN AND OUT TODAY. SOFT BPs AND ASYMPTOMATIC. DR. POPE NOTIFIED. NO OTHER ACUTE CONCERNS TODAY. BED IN LOWEST POSITION, CALL LIGHT WITHIN REACH AND ALL NEEDS MET. REPORT TO ONCOMING RN.
[2024-03-20] MEDS ORDERED: Ondansetron 4 MG SoluTab MM PRN (21:25)
[2024-03-21] MEDS ORDERED: HYDROcodone 5-APAP 325 TAB PO PRN ×2 (00:25→10:45)
[2024-03-21] MEDS ORDERED: NS 250 ML IV ONE (01:00)
[2024-03-21 03:38] VITALS: BP 107/52
[2024-03-21 05:13] LABS: BASOPHILS ABSOLUTE AUTO 0.03 K/mm3 (0.00-0.23); BASOPHILS PERCENT AUTO 0 % (0-2); EOSINOPHILS ABSOLUTE AUTO 0.11 K/mm3 (0.00-0.68); EOSINOPHILS PERCENT AUTO 1 % (0-6); Hematocrit 24.4 % (33.0-51.0); Hemoglobin 7.8 g/dL (11.5-16.0); IMMATURE GRAN ABSOLUTE AUTO 0.07 K/mm3 (0.00-0.10); IMMATURE GRAN PERCENT AUTO 1 % (0-1); LYMPHOCYTES ABSOLUTE AUTO 0.85 K/mm3 (0.84-5.20); LYMPHOCYTES PERCENT AUTO 8 % (21-46); MONOCYTES ABSOLUTE AUTO 0.63 K/mm3 (0.16-1.47); MONOCYTES PERCENT AUTO 6 % (4-13); Mean Corpuscular HGB 33.1 pg (26.0-34.0); Mean Corpuscular Volume 103 fL (80-100); Mean Platelet Volume 9.5 fL (9.1-12.4); NEUTROPHILS ABSOLUTE AUTO 8.82 K/mm3 (1.96-9.15); NEUTROPHILS PERCENT AUTO 84 % (41-73); Platelet Count 194 K/mm3 (150-400); RDW Coefficient Variation 14.3 % (11.7-14.2); RDW Standard Deviation 54.3 fL (35.1-46.3); Red Blood Cell Count 2.36 M/mm3 (3.80-5.20); White Blood Cell Count 10.51 K/mm3 (4.00-11.30)
[2024-03-21 06:04] LABS: Albumin, Blood 2.4 g/dL (3.4-5.0); Albumin/Globulin Ratio 0.7 (0.8-1.8); Bilirubin, Total 0.4 mg/dL (0.1-1.0); Calcium, Blood 7.8 mg/dL (8.5-10.1); Creatinine, Blood 1.27 mg/dL (0.40-1.00); Globulin, Blood 3.5 g/dL (2.2-4.0); Potassium, Blood 3.6 mmol/L (3.5-5.5); Total Protein, Blood 5.9 g/dL (6.4-8.2)
[2024-03-21] MEDS ORDERED: NS 250 ML IV PRN (07:50)
[2024-03-21 08:21] VITALS: BP 100/46
[2024-03-21] MEDS ORDERED: CeFAZolin Sodium 1,000 MG in NS 50 ML IV ONE (10:30)
[2024-03-21 15:54] VITALS: BP 110/55
[2024-03-21] MEDS ORDERED: CeFAZolin Sodium 2,000 MG in NS 100 ML IV SCH (16:00)
[2024-03-21 19:31] VITALS: BP 120/66
--- NOTE | 2024-03-21 20:20 | NUR ---
PATIENT IS ALERT AND ORIENTED TIMES THREE. RIGHT LEG EDEMA AND CELLULITSIS NOTED THREE ROUNDS OF ANTIBIOTICS GIVEN ON SHIFT. VSS. PAIN MEDICATION GIVEN. ULTRA SOUND FOUND NO COMPARTMENT SYNDROME OR SOFT TISSUE ABNORMALITIES.
[2024-03-22 03:57] VITALS: BP 97/49
[2024-03-22 05:44] LABS: BASOPHILS ABSOLUTE AUTO 0.03 K/mm3 (0.00-0.23); BASOPHILS PERCENT AUTO 0 % (0-2); EOSINOPHILS ABSOLUTE AUTO 0.15 K/mm3 (0.00-0.68); EOSINOPHILS PERCENT AUTO 2 % (0-6); Hemoglobin 7.6 g/dL (11.5-16.0); IMMATURE GRAN PERCENT AUTO 1 % (0-1); LYMPHOCYTES ABSOLUTE AUTO 1.43 K/mm3 (0.84-5.20); LYMPHOCYTES PERCENT AUTO 16 % (21-46); MONOCYTES ABSOLUTE AUTO 0.74 K/mm3 (0.16-1.47); MONOCYTES PERCENT AUTO 8 % (4-13); Mean Corpuscular HGB 32.9 pg (26.0-34.0); Mean Corpuscular HGB Conc 31.7 g/dL (31.5-36.5); Mean Corpuscular Volume 104 fL (80-100); Mean Platelet Volume 9.9 fL (9.1-12.4); NEUTROPHILS PERCENT AUTO 73 % (41-73); Platelet Count 231 K/mm3 (150-400); RDW Coefficient Variation 14.3 % (11.7-14.2); RDW Standard Deviation 54.7 fL (35.1-46.3); Red Blood Cell Count 2.31 M/mm3 (3.80-5.20); White Blood Cell Count 9.05 K/mm3 (4.00-11.30)
--- NOTE | 2024-03-22 06:26 | NUR ---
END OF SHIFT SUMMARY PT A&OX4. AMBULATING INDEPENDENTLY. RLE CELLULITIS AND EDEMA UNCHANGED. MEDICATED PER EMAR WITH GOOD EFFECT. NO ACUTE EVENTS OVERNIGHT.
[2024-03-22 06:31] LABS: Albumin, Blood 2.4 g/dL (3.4-5.0); Albumin/Globulin Ratio 0.7 (0.8-1.8); Bilirubin, Total 0.2 mg/dL (0.1-1.0); Bun/Creatinine Ratio 10.6 (12.0-20.0); Creatinine, Blood 1.23 mg/dL (0.40-1.00); Globulin, Blood 3.6 g/dL (2.2-4.0); Potassium, Blood 3.4 mmol/L (3.5-5.5)
[2024-03-22 07:13] VITALS: BP 102/51
[2024-03-22] MEDS ORDERED: Polyethylene Glycol 3350 17 gm PO PRN (09:15)
[2024-03-22] MEDS ORDERED: Potassium Chloride 10 Meq Tablet SA PO ONE (09:15)
[2024-03-22 14:29] VITALS: BP 116/56
--- NOTE | 2024-03-22 17:34 | NUR ---
SHIFT SUMMARY: PT IS A&OX4/INDEPENDENT; MAKES HER NEEDS KNOWN. SHE CONTINUES TO HAVE PAIN IN HER RLE EXTREMITY; PAIN MEDICATIONS NEEDED AND RECEIVING IV ANTIBIOTICS. SHE AMBULATED DOWN TO THE COFFEE CART TWICE TODAY. SHE IS IN BED, CALL LIGHT WITHIN REACH, NO SIGNS OR SYMPTOMS OF DISTRESS, PLAN OF CARE ONGOING; POSSIBLE D/C TOMORROW 03/23/24? (WHILE MEDITECH WAS DOWN TODAY; ALL CHARTING COMPLETED WAS ALSO COMPLETED VIA DOWNTIME PAPERCHARTING)
[2024-03-23 02:57] VITALS: BP 123/61
--- NOTE | 2024-03-23 05:33 | NUR ---
PILE DRIVING NOZZLEMAN PATIENT IS A&OX4, VITALS ARE STABLE, ON ROOM AIR, CALLS APPROPRIATELY, INDEPENDENT ON ROOM. PATIENT COMPLAIN OF SEVERE PAIN TO RIGHT LEG AND BACK, PRN MEDS GIVEN POSSIBLE D/C HOME TODAY.
[2024-03-23 05:47] LABS: BASOPHILS ABSOLUTE AUTO 0.05 K/mm3 (0.00-0.23); BASOPHILS PERCENT AUTO 1 % (0-2); EOSINOPHILS ABSOLUTE AUTO 0.24 K/mm3 (0.00-0.68); EOSINOPHILS PERCENT AUTO 2 % (0-6); Hematocrit 22.4 % (33.0-51.0); Hemoglobin 7.3 g/dL (11.5-16.0); IMMATURE GRAN ABSOLUTE AUTO 0.16 K/mm3 (0.00-0.10); IMMATURE GRAN PERCENT AUTO 2 % (0-1); LYMPHOCYTES ABSOLUTE AUTO 1.67 K/mm3 (0.84-5.20); LYMPHOCYTES PERCENT AUTO 17 % (21-46); MONOCYTES ABSOLUTE AUTO 0.91 K/mm3 (0.16-1.47); MONOCYTES PERCENT AUTO 9 % (4-13); Mean Corpuscular HGB Conc 32.6 g/dL (31.5-36.5); Mean Corpuscular Volume 101 fL (80-100); Mean Platelet Volume 9.7 fL (9.1-12.4); NEUTROPHILS ABSOLUTE AUTO 6.86 K/mm3 (1.96-9.15); NEUTROPHILS PERCENT AUTO 69 % (41-73); Platelet Count 250 K/mm3 (150-400); RDW Coefficient Variation 14.1 % (11.7-14.2); RDW Standard Deviation 52.4 fL (35.1-46.3); Red Blood Cell Count 2.21 M/mm3 (3.80-5.20); White Blood Cell Count 9.89 K/mm3 (4.00-11.30)
[2024-03-23 06:11] LABS: Albumin, Blood 2.3 g/dL (3.4-5.0); Albumin/Globulin Ratio 0.7 (0.8-1.8); Bilirubin, Total 0.2 mg/dL (0.1-1.0); Calcium, Blood 8.1 mg/dL (8.5-10.1); Creatinine, Blood 1.09 mg/dL (0.40-1.00); Globulin, Blood 3.5 g/dL (2.2-4.0); Potassium, Blood 3.8 mmol/L (3.5-5.5); Total Protein, Blood 5.8 g/dL (6.4-8.2)
[2024-03-23 06:58] VITALS: BP 124/61
[2024-03-23] MEDS ORDERED: CEPH500 PO (14:56)
[2024-03-23] MEDS ORDERED: LACT PO (14:56)
[2024-03-23 15:09] VITALS: BP 109/56
--- NOTE | 2024-03-23 16:12 | NUR ---
PT DISCHARGED AT 1545. PT HAD DISCHARGE PACKET REVIEWED AND EDUCTIONAL MATERIAL SENT. NO DISTRESS NOTED AOX4 AND INDEPENDENT IN ROOM. ALL PERSONAL BELONGINGS COLLECTED. PT ESCORTED VIA WHEELCHAIR TO S ENTRANCE VIA AID.
== END 2024-03-23 15:59 | disposition home or self-care (01) | DRG 872 ==
LOC: ER 09:00 → MEDS 09:01
PROVIDERS: Family Medicine; Physician Assistant; ADMIT Hospitalist
DX: A41.9 Sepsis, unspecified organism (principal); L03.115 Cellulitis of right lower limb; N17.9 Acute kidney failure, unspecified; E78.5 Hyperlipidemia, unspecified; E11.65 Type 2 diabetes mellitus with hyperglycemia; E66.9 Obesity, unspecified; Z79.899 Other long term (current) drug therapy; R65.20 Severe sepsis without septic shock; F17.210 Nicotine dependence, cigarettes, uncomplicated; G89.29 Other chronic pain; Z90.49 Acquired absence of other specified parts of digestive tract; Z68.36 Body mass index [BMI] 36.0-36.9, adult
CPT/HCPCS: 36415; 73700; 80053; 82607; 82728; 82746; 83540; 83550; 83605; 85014; 85018; 85025; 85045; 87040; 93971; 96361; 96365; 96366; 96367; 96372; 96375; 96376; 97110; 97161; 99284-25; A9270; G0378; J0690; J1650; J2405; J3370; J7030; J7040; J7050; J7120

== ENCOUNTER 2024-03-30 18:26 | Inpatient (IN) | payer OTHER ==
[~2024-03-30] VITALS: Ht 157.5 cm; Wt 105.4 kg
[~2024-03-30 18:26] MED LIST changes: +ATOR40TA PO; +CEPH500 PO; +LACT PO; +METF500 PO; +OMEP20ER PO; +ONDA4ODT PO; +PRENATAL TABLE1 EAC2 PO
[2024-03-30 19:07] LABS: BASOPHILS ABSOLUTE AUTO 0.06 K/mm3 (0.00-0.23); BASOPHILS PERCENT AUTO 1 % (0-2); EOSINOPHILS ABSOLUTE AUTO 0.18 K/mm3 (0.00-0.68); EOSINOPHILS PERCENT AUTO 2 % (0-6); Hematocrit 28.3 % (33.0-51.0); IMMATURE GRAN ABSOLUTE AUTO 0.05 K/mm3 (0.00-0.10); IMMATURE GRAN PERCENT AUTO 1 % (0-1); LYMPHOCYTES ABSOLUTE AUTO 2.47 K/mm3 (0.84-5.20); LYMPHOCYTES PERCENT AUTO 23 % (21-46); MONOCYTES ABSOLUTE AUTO 0.75 K/mm3 (0.16-1.47); MONOCYTES PERCENT AUTO 7 % (4-13); Mean Corpuscular HGB 32.4 pg (26.0-34.0); Mean Corpuscular HGB Conc 31.8 g/dL (31.5-36.5); Mean Corpuscular Volume 102 fL (80-100); NEUTROPHILS ABSOLUTE AUTO 7.07 K/mm3 (1.96-9.15); NEUTROPHILS PERCENT AUTO 67 % (41-73); Platelet Count 478 K/mm3 (150-400); RDW Coefficient Variation 13.4 % (11.7-14.2); RDW Standard Deviation 49.9 fL (35.1-46.3); Red Blood Cell Count 2.78 M/mm3 (3.80-5.20); White Blood Cell Count 10.58 K/mm3 (4.00-11.30)
[2024-03-30 19:26] LABS: Albumin, Blood 3.1 g/dL (3.4-5.0); Albumin/Globulin Ratio 0.7 (0.8-1.8); Bilirubin, Total 0.4 mg/dL (0.1-1.0); Bun/Creatinine Ratio 13.8 (12.0-20.0); Calcium, Blood 9.1 mg/dL (8.5-10.1); Creatinine, Blood 1.3 mg/dL (0.40-1.00); Globulin, Blood 4.6 g/dL (2.2-4.0); Potassium, Blood 3.9 mmol/L (3.5-5.5); Total Protein, Blood 7.7 g/dL (6.4-8.2)
[2024-03-30] MEDS ORDERED: Vancomycin HCL 2,000 MG in NS 500 ML IV ONE (23:40)
[2024-03-31] MEDS ORDERED: HYDROcodone 10-APAP 325 TAB PO ONE (00:25)
[2024-03-31] MEDS ORDERED: Acetaminophen 325 MG TABLET PO PRN ×2 (00:45→13:05)
[2024-03-31] MEDS ORDERED: CefTRIAXone Sodium 1,000 MG in NS 100 ML IV ONE (00:55)
[2024-03-31 04:05] LABS: BASOPHILS ABSOLUTE AUTO 0.05 K/mm3 (0.00-0.23); BASOPHILS PERCENT AUTO 1 % (0-2); EOSINOPHILS ABSOLUTE AUTO 0.24 K/mm3 (0.00-0.68); EOSINOPHILS PERCENT AUTO 3 % (0-6); Hematocrit 25.6 % (33.0-51.0); Hemoglobin 8.1 g/dL (11.5-16.0); IMMATURE GRAN ABSOLUTE AUTO 0.05 K/mm3 (0.00-0.10); IMMATURE GRAN PERCENT AUTO 1 % (0-1); LYMPHOCYTES ABSOLUTE AUTO 2.48 K/mm3 (0.84-5.20); LYMPHOCYTES PERCENT AUTO 28 % (21-46); MONOCYTES ABSOLUTE AUTO 0.79 K/mm3 (0.16-1.47); MONOCYTES PERCENT AUTO 9 % (4-13); Mean Corpuscular HGB 32.9 pg (26.0-34.0); Mean Corpuscular HGB Conc 31.6 g/dL (31.5-36.5); Mean Corpuscular Volume 104 fL (80-100); Mean Platelet Volume 9.1 fL (9.1-12.4); NEUTROPHILS ABSOLUTE AUTO 5.36 K/mm3 (1.96-9.15); NEUTROPHILS PERCENT AUTO 60 % (41-73); Platelet Count 408 K/mm3 (150-400); RDW Coefficient Variation 13.7 % (11.7-14.2); RDW Standard Deviation 51.8 fL (35.1-46.3); Red Blood Cell Count 2.46 M/mm3 (3.80-5.20); White Blood Cell Count 8.97 K/mm3 (4.00-11.30)
[2024-03-31 04:26] LABS: Bun/Creatinine Ratio 13.7 (12.0-20.0); Calcium, Blood 8.3 mg/dL (8.5-10.1); Creatinine, Blood 1.17 mg/dL (0.40-1.00)
[2024-03-31] MEDS ORDERED: HYDROcodone 10-APAP 325 TAB PO PRN (06:00)
[2024-03-31] MEDS ORDERED: Enoxaparin 40 MG/0.4 ML SYR SC SCH (09:00)
[2024-03-31] MEDS ORDERED: Lactobacil 2-S.Thermo-Bifido 1 1 Cap PO SCH (09:00)
[2024-03-31 09:49] VITALS: BP 152/90
[2024-03-31 11:16] VITALS: BP 124/63
[2024-03-31] MEDS ORDERED: CeFAZolin Sodium 2,000 MG in NS 100 ML IV SCH (13:00)
[2024-03-31 15:40] VITALS: BP 141/85
--- NOTE | 2024-03-31 16:19 | NUR ---
VSS, denies SOB, states 10 out of 10 pain that was well managed with prn [place], A-Ox4, ambulates independent, on RA. Lungs clear, heart regular, bowel sounds normative, LBM 03/30, RLE +3 edema with rednesss and swelling, redness marked, MD aware. Pt can make needs known, call moscoso in hand, bed in lowest position.
[2024-03-31 19:20] VITALS: BP 129/57
[2024-03-31] MEDS ORDERED: Ondansetron 4 MG SoluTab MM PRN (21:00)
[2024-04-01] MEDS ORDERED: Vancomycin HCL 1,500 MG in NS 250 ML IV SCH
[2024-04-01 04:13] VITALS: BP 120/65
[2024-04-01 04:52] LABS: Hematocrit 28.2 % (33.0-51.0); Hemoglobin 8.7 g/dL (11.5-16.0); Mean Corpuscular HGB 31.9 pg (26.0-34.0); Mean Corpuscular HGB Conc 30.9 g/dL (31.5-36.5); Mean Corpuscular Volume 103 fL (80-100); Mean Platelet Volume 9.2 fL (9.1-12.4); Platelet Count 463 K/mm3 (150-400); RDW Coefficient Variation 13.6 % (11.7-14.2); RDW Standard Deviation 51.5 fL (35.1-46.3); Red Blood Cell Count 2.73 M/mm3 (3.80-5.20); White Blood Cell Count 7.22 K/mm3 (4.00-11.30)
--- NOTE | 2024-04-01 05:02 | NUR ---
SHIFT SUMMARY 64 YR F ADMITTED ON 03/31/24. FULL CODE. NO ACUTE CHANGES THIS SHIFT. PT STATES SHE SLEEPS VERY LITTLE AND SHE WAS UP MOST OF THE NIGHT WATCHING TV. PAIN APPEARS TO BE WELL CONTROLLED. NO N/V, CHEST PAIN, OR SOB. SHE IS PLEASANT AND COOPERATIVE WITH CARE AND INDEPENDANT IN THE ROOM. BED IN LOW POSITION AND CALL LIGHT IN REACH. WILL CONTINUE TO MONITOR.
[2024-04-01 05:30] LABS: Anion Gap 12 mmol/L (3-11); Blood Urea Nitrogen 11 mg/dL (8-24); CO2, Blood 21 mmol/L (21-32); Calcium, Blood 8.5 mg/dL (8.5-10.1); Chloride, Blood 113 mmol/L (98-108); Creatinine, Blood 0.92 mg/dL (0.40-1.00); Glomerular Filtration Rate 70 (60-); Glucose, Blood 132 mg/dL (70-99); Magnesium, Blood 1.8 mg/dL (1.6-2.4); Phosphorus, Blood 4.2 mg/dL (2.5-4.9); Potassium, Blood 3.8 mmol/L (3.5-5.5); Sodium, Blood 142 mmol/L (136-145)
[2024-04-01] MEDS ORDERED: Omeprazole 20 MG CapCR PO SCH (06:00)
[2024-04-01 07:33] VITALS: BP 137/79
[2024-04-01] MEDS ORDERED: Prenatal Vit/FE Fumarate/FA 1 Tab PO SCH (09:00)
[2024-04-01] MEDS ORDERED: CefTRIAXone Sodium 1,000 MG in NS 100 ML IV SCH (09:00)
[2024-04-01] MEDS ORDERED: Atorvastatin 40 MG Tab PO SCH (09:00)
[2024-04-01] MEDS ORDERED: HYDROcodone 10-APAP 325 TAB PO PRN (09:25)
[2024-04-01 16:14] VITALS: BP 132/68
--- NOTE | 2024-04-01 16:51 | NUR ---
VSS, A-Ox4, denies SOB, states 9 out of 10 pain that was well managed with prn [place], ambulates independently, on RA. Lungs clear, heart regular, bowel sounds normative, redness and swelling to RLE. Pt can make needs known, call moscoso in hand, bed in lowest position.
[2024-04-01 17:06] LABS: Source, Urine Voided
[2024-04-01 17:16] LABS: Appearance, Urine Clear (Clear); Bilirubin, Urine Neg (Neg); Blood, Urine Neg (Neg); Glucose Qualitative, Urine Neg (Neg); Ketones, Urine Neg (Neg); Leukocyte Esterase, Urine Neg (Neg); Nitrite, Urine Neg (Neg); Protein, Urine Neg (Neg); Urobilinogen, Urine NORM (Normal)
[2024-04-01 18:33] LABS: Color, Urine Pale Yellow (P-Yellow)
[2024-04-01 19:33] VITALS: BP 140/63
--- NOTE | 2024-04-02 03:53 | NUR ---
SHIFT SUMMARY: PT IS ALERT AND ORIENTED. PT IS CALM AND COOPERATIVE WITH CARE. PT CALLS APPROPRIATELY. PT REPORTS R. LEG PAIN ON ONE OCCASION, GAVE PRN OXYCODONE. PT DENIES NAUSEA, VOMITING, AND SOB. PT UP WALKING THE HALLS ON SEVERAL OCCASIONS. PT SLEPT INTERMITTENTLY THROUGHOUT THE NIGHT. NO ACUTE CHANGES OR COMPLICATIONS THIS SHIFT. BED IN LOW POSITION, CALL LIGHT WITHIN REACH. WILL CONTINUE TO MONITOR.
[2024-04-02 05:13] LABS: Hematocrit 27.9 % (33.0-51.0); Hemoglobin 8.8 g/dL (11.5-16.0); Mean Corpuscular HGB 32.2 pg (26.0-34.0); Mean Corpuscular HGB Conc 31.5 g/dL (31.5-36.5); Mean Corpuscular Volume 102 fL (80-100); Mean Platelet Volume 9.2 fL (9.1-12.4); Platelet Count 459 K/mm3 (150-400); RDW Coefficient Variation 13.8 % (11.7-14.2); RDW Standard Deviation 50.4 fL (35.1-46.3); Red Blood Cell Count 2.73 M/mm3 (3.80-5.20); White Blood Cell Count 7.15 K/mm3 (4.00-11.30)
[2024-04-02 05:34] VITALS: BP 128/59
[2024-04-02 05:34] LABS: Bun/Creatinine Ratio 11.4 (12.0-20.0); Calcium, Blood 8.5 mg/dL (8.5-10.1); Creatinine, Blood 1.14 mg/dL (0.40-1.00); Potassium, Blood 3.9 mmol/L (3.5-5.5)
[2024-04-02 07:24] VITALS: BP 123/68
[2024-04-02] MEDS ORDERED: CefTRIAXone Sodium 1,000 MG in NS 100 ML IV ONE (10:40)
[2024-04-02] MEDS ORDERED: VISBIOME 112.51 EACH PO (11:33)
[2024-04-02] MEDS ORDERED: CEPH500 PO (11:33)
--- NOTE | 2024-04-02 15:11 | NUR ---
Pt D/C at 1430, VSS, denies SOB, states 8 out of 10 pain that was well managed with prn norco, A-Ox4, ambulates independently, on RA. Pt D/C with IV intact for outpt ABX therapy, D/C instructions given, safety ensured.
== END 2024-04-02 14:21 | disposition home or self-care (01) | DRG 603 ==
LOC: ER 18:26 → ERHOLD 18:27 → ER 18:27 → MEDS 03-31 11:16
PROVIDERS: Family Medicine; Student in an Organized Health Care Education/Training Program; ADMIT Internal Medicine
DX: L03.116 Cellulitis of left lower limb (principal); G89.29 Other chronic pain; F17.210 Nicotine dependence, cigarettes, uncomplicated; I12.9 Hypertensive chronic kidney disease with stage 1 through stage 4 chronic kidney disease, or unspecified chronic kidney disease; E11.22 Type 2 diabetes mellitus with diabetic chronic kidney disease; N18.9 Chronic kidney disease, unspecified; D64.9 Anemia, unspecified; Z71.6 Tobacco abuse counseling; Z90.49 Acquired absence of other specified parts of digestive tract; Z98.51 Tubal ligation status; Z98.890 Other specified postprocedural states; Z79.811 Long term (current) use of aromatase inhibitors; Z79.84 Long term (current) use of oral hypoglycemic drugs; Z79.891 Long term (current) use of opiate analgesic; Z79.899 Other long term (current) drug therapy
CPT/HCPCS: 36415; 80048; 80053; 80069; 81003; 83036; 83735; 85025; 85027; 87086; 96365; 96366; 96367; 96372-59; 96375; 97110; 97116; 97161; 97165; 99284-25; A9270; G0378; J0690; J0696; J1650; J3370; J7040

== ENCOUNTER 2024-04-04 02:39 | Day surgery (SDC) | payer OTHER ==
[~2024-04-04 02:39] MED LIST changes: +VISBIOME 112.51 EACH PO
[2024-04-04] MEDS ORDERED: CefTRIAXone Sodium 1,000 MG in NS 100 ML IV SCH (06:00)
[2024-04-04 09:15] VITALS: BP 105/60
== END 2024-04-04 09:41 | disposition home or self-care (01) ==
LOC: ATC 02:39
DX: L03.115 Cellulitis of right lower limb (principal); E11.9 Type 2 diabetes mellitus without complications; I10 Essential (primary) hypertension; G89.29 Other chronic pain; F17.210 Nicotine dependence, cigarettes, uncomplicated; Z79.899 Other long term (current) drug therapy
CPT/HCPCS: 96365; J0696

== ENCOUNTER 2025-08-31 11:22 | Emergency (ER) | payer OTHER ==
[~2025-08-31] VITALS: Ht 157.5 cm; Wt 90.7 kg
[~2025-08-31 11:22] MED LIST changes: +AMOCLA875 PO
[2025-08-31 11:28] VITALS: BP 116/61
[2025-08-31] MEDS ORDERED: CEFP200 PO (13:16)
== END 2025-08-31 13:23 | disposition home or self-care (01) ==
LOC: ER 11:22
DX: L03.115 Cellulitis of right lower limb (principal); F17.210 Nicotine dependence, cigarettes, uncomplicated; Z88.0 Allergy status to penicillin; Z88.1 Allergy status to other antibiotic agents; Z79.84 Long term (current) use of oral hypoglycemic drugs; Z79.899 Other long term (current) drug therapy
CPT/HCPCS: 93971; 99283-25; A9270